=== PATIENT | female | born 1935 | race Caucasian/White ===

== ENCOUNTER → 2021-07-03 | Outpatient (CLI) | payer MEDICARE | LOC: ORTHO 09:43 | PROVIDERS: ATTEND Orthopaedic Surgery | DX: G56.02 Carpal tunnel syndrome, left upper limb (principal); E11.9 Type 2 diabetes mellitus without complications; I10 Essential (primary) hypertension | CPT/HCPCS: 99213 ==

== ENCOUNTER 2021-08-11 05:27 | Outpatient (CLI) | payer MEDICARE ==
[~2021-08-11] VITALS: Ht 149.9 cm; Wt 90.1 kg
[2021-08-11] MEDS ORDERED: GLUCOSAMINE (12:43)
[2021-08-11] MEDS ORDERED: LABE100T6 PO (12:43)
[2021-08-11] MEDS ORDERED: ERGO1250 PO (12:43)
[2021-08-11] MEDS ORDERED: VITAMIN B12 (12:43)
[2021-08-11] MEDS ORDERED: IBUP-30 PO (12:43)
[2021-08-11] MEDS ORDERED: LATA7.5D OP (12:43)
[2021-08-11] MEDS ORDERED: METF-479 PO (12:43)
[2021-08-11] MEDS ORDERED: GLIM2TAB4 PO (12:43)
[2021-08-11] MEDS ORDERED: ASPI-999 PO (12:43)
[2021-08-11] MEDS ORDERED: HCL (12:43)
[2021-08-11] MEDS ORDERED: OMEP40CA6 PO (12:43)
== END 2021-08-11 12:44 | disposition home or self-care (01) ==
LOC: PREOP 05:27
PROVIDERS: ATTEND Orthopaedic Surgery
DX: Z01.818 Encounter for other preprocedural examination (principal)

== ENCOUNTER 2021-08-18 06:00 | Day surgery (SDC) | payer MEDICARE ==
[2021-08-18] VITALS (7 sets, daily range): BP systolic 132–199; BP diastolic 62–97
[~2021-08-18] VITALS: Ht 19.9 cm; Wt 90.1 kg
[~2021-08-18 06:00] MED LIST: ASPI-999 PO; ERGO1250 PO; GLIM2TAB4 PO; GLUCOSAMINE; HCL; IBUP-30 PO; LABE100T6 PO; LATA7.5D OP; METF-479 PO; OMEP40CA6 PO; VITAMIN B12
[2021-08-18] MEDS ORDERED: LACTATED RINGERS 1,000 ML IV PRN (06:30)
[2021-08-18] MEDS ORDERED: ceFAZolin 2 GM IV Premixed 50 ML IV ONE (06:30)
[2021-08-18] MEDS: LACTATED RINGERS 1,000 ML IV PRN ×2 (06:40→07:08)
[2021-08-18] MEDS ORDERED: NEO/POLY/BAC (NEOSPORIN) OINT 15 GM TUBE ONE (06:40)
[2021-08-18] MEDS ORDERED: BUPIVACAINE 0.25% 10 ML (SENSORCAINE) VIAL ONE (06:41)
[2021-08-18] MEDS ORDERED: LIDOCAINE PF 0.5% 50 ML (XYLOCAINE) VIAL ONE (06:54)
[2021-08-18] MEDS ORDERED: MIDAZOLAM 2 MG/2 ML (VERSED) VIAL ONE (06:54)
[2021-08-18] MEDS ORDERED: fentaNYL INJ 100 MCG/2 ML AMP ONE (06:54)
[2021-08-18] MEDS ORDERED: PROPOFOL INJECTION 50 ML IV ONE (06:54)
--- NOTE | 2021-08-18 08:05 | Operative Report - Ortho ---
Operative Report Surgeon (s)/Secretary Office Clerk (s) Surgeon OLE SAVAGE MD Secretary Office Clerk n/a Pre-Operative Diagnosis LEFT CARPAL TUNNEL SYNDROME Post-Operative Diagnosis same Operative Report Date of Procedure: August 18, 2021 Name of Procedure Performed: Left Carpal Tunnel Release Description & Findings After obtaining informed consent and marking the patient in the preoperative holding area, the patient was administered IV antibiotics. The patient was t aken to the operating room and ruma block anesthesia was induced. The left upper extremity was prepped and draped in the usual sterile fashion. Surgical timeout was taken. Incision was made just ulnar to the thenar crease. Blunt dissection was carried down to the longitudinal fibers of the palmar fascia; these were divided in line revealing the transverse carpal ligament. Beginning distally and working proximally, carpal tunnel release was performed. Nerve protector was placed and release was completed back to the level of the forearm fascia. Probe was inserted and release was palpably complete. Tourniquet was dropped and hemostasis was achieved. Wound was closed with 4-0 nylon. Wound was dressed with antibiotic ointment, xeroform, 4x4s, selene, ABD for soft splint, cast padding, and YENNY wrap. Patient tolerated the proceudre well and was stable to the recovery room. Anesthesia Type Ruma Block Estimated Blood Loss minimal Specimen(s) collected/removed None OLE SAVAGE MD August 18, 2021 08:05
[2021-08-18] MEDS ORDERED: OXC5T PO (08:07)
--- NOTE | 2021-08-18 08:33 | Anesthesia-General Post-Op ---
MAC Patient Condition Mental Status/LOC: Same as Preop Cardiovascular: Satisfactory Nausea/Vomiting: Absent Respiratory: Satisfactory Pain: Controlled Complications: Absent Post Op Complications Complications None Follow Up Care/Instructions Patient Instructions None needed. Anesthesiology Discharge Order Discharge Order Patient is doing well, no complaints, stable vital signs, no apparent adverse anesthesia problems. No complications reported per nursing. BERNADETTE SHOEMAKER CRNA August 18, 2021 08:33
== END 2021-08-18 09:40 | disposition home or self-care (01) ==
LOC: SDC 06:00
PROVIDERS: ATTEND Orthopaedic Surgery
DX: G56.02 Carpal tunnel syndrome, left upper limb (principal); E11.9 Type 2 diabetes mellitus without complications; Z79.84 Long term (current) use of oral hypoglycemic drugs; E66.9 Obesity, unspecified; Z68.41 Body mass index [BMI] 40.0-44.9, adult
CPT/HCPCS: 82947; 87081

== ENCOUNTER → 2021-08-29 | Outpatient (CLI) | payer MEDICARE ==
[~2021-08-29] MED LIST changes: +OXC5T PO
== END ==
LOC: ORTHO 09:20
PROVIDERS: ATTEND Orthopaedic Surgery
DX: Z47.89 Encounter for other orthopedic aftercare (principal)